=== PATIENT | female | born 1935 | race Caucasian/White ===

== ENCOUNTER → 2017-12-22 | Outpatient (CLI) | payer MEDICARE, BC ==
[2017-12-22 22:04] LABS: COLLECTION METHOD CLEAN CATCH
[2017-12-22 22:33] LABS: MUCOUS Present /lpf; PH 5 (5-8); SQUAMOUS EPITHELIAL 0-2 /hpf; URINE APPEARANCE Hazy; URINE BACTERIA Rare /hpf; URINE BILIRUBIN Negative (NEGATIVE); URINE BLOOD 1+ (NEGATIVE); URINE COLOR Yellow; URINE GLUCOSE Negative (NEGATIVE); URINE KETONE Negative (NEGATIVE); URINE LEUKOCYTE ESTERASE 2+ (NEGATIVE); URINE NITRATE Negative (NEGATIVE); URINE PROTEIN(semi-quant) Negative (NEGATIVE); URINE RBC 0-2 /hpf; URINE UROBILINOGEN Negative (NEGATIVE); URINE WBC 20-50 /hpf
== END ==
LOC: ZCOL.LAB 21:19
PROVIDERS: Internal Medicine
DX: F03.90 Unspecified dementia, unspecified severity, without behavioral disturbance, psychotic disturbance, mood disturbance, and anxiety (principal); N39.0 Urinary tract infection, site not specified

== ENCOUNTER → 2018-01-06 | Outpatient (REF) ==
[2018-01-06 09:41] LABS: BASO % 0.7 % (0.0-2.0); EOS # 0.2 (0.0-0.7); GRAN # 3.1 (1.4-6.5); GRAN % 57.4 % (42.2-75.2); LYMPH # 1.7 (1.2-3.4); MEAN CELL VOLUME 83 fl (80.0-100.0); MEAN CORPUSCULAR HGB CONC 32 g/dl (33.0-37.0); MEAN PLATELET VOLUME 10.4 fl (7.4-10.4); MONO # 0.4 (0.1-0.6); MONO % 6.7 % (1.7-9.3); PLATELET COUNT 262 K/mm3 (130-400); RED BLOOD COUNT 4.17 M/mm3 (4.10-5.30); REDCELL DISTRIBUTION WIDTH-CV 14.3 % (11.5-14.5)
[2018-01-06 09:42] LABS: HEMATOCRIT 34.5 % (37.0-47.0); MEAN CORPUSCULAR HEMOGLOBIN 26 pg (27.0-31.0)
[2018-01-06 10:04] LABS: BILIRUBIN,TOTAL 0.2 mg/dL (0.0-1.0); CALCIUM 9.3 mg/dL (8.4-10.2); CHOLESTEROL RISK RATIO 2.1; CREATININE, serum 0.77 mg/dL (0.52-1.25); POTASSIUM 4.3 mmol/L (3.4-5.0); TOTAL PROTEIN 6.9 gm/dL (6.4-8.2)
[2018-01-06 10:33] LABS: THYROID STIMULATING HORMONE 2.62 uIU/mL (0.465-4.680)
== END ==
LOC: ZCOL.LAB 09:34
PROVIDERS: Internal Medicine
DX: E78.2 Mixed hyperlipidemia (principal); R41.3 Other amnesia; G47.30 Sleep apnea, unspecified; E03.4 Atrophy of thyroid (acquired)

== ENCOUNTER 2020-01-22 10:46 | Inpatient (IN) | payer MEDICARE, BC ==
[~2020-01-22] VITALS: Ht 157.5 cm; Wt 63.6 kg
[2020-01-22 12:31] VITALS: BP 138/70; PULSE 70; TEMP 97.5
--- NOTE | 2020-01-22 12:45 | NUR ---
Lying in bed with eyes open. Patient is alert to self, disoriented to date of , place, and date. Patient denies pain at this time. Does say "ouch" with rolling to the right hip but pain goes away when done moving. Patient incontient of urine, removed brief, pericare provided, new brief applied. Positioned into comfortable position. Patient denies further needs.
[2020-01-22] MEDS ORDERED: ASPIRIN 81M81 MG/TA2 PO (13:11)
[2020-01-22] MEDS ORDERED: VITAMIN D 1001000 IU PO (13:12)
[2020-01-22] MEDS ORDERED: NAMENDA 10MG TA10 MG PO (13:13)
[2020-01-22] MEDS ORDERED: CELEXA40 MG PO (13:13)
[2020-01-22] MEDS ORDERED: TYLENOL 8 HR PO (13:14)
[2020-01-22] MEDS ORDERED: COLACE 100100 MG/CAP PO (13:15)
[2020-01-22] MEDS ORDERED: SYNTHROID 0.0.025 MG PO ×2 (13:17→13:19)
[2020-01-22] MEDS ORDERED: ARICEPT 5MG PO (13:19)
[2020-01-22] MEDS ORDERED: ATIVAN 0.50.5 MG/TAB PO (13:20)
[2020-01-22 14:10] LABS: BASO % 0.4 % (0.0-2.0); EOS # 0.2 (0.0-0.7); EOS % 2.8 % (0-4.0); GRAN # 5.7 (1.4-6.5); GRAN % 76.1 % (42.2-75.2); HEMOGLOBIN 11.2 g/dl (12.5-16.0); LYMPH # 1.1 (1.2-3.4); LYMPH % 14.7 % (20.0-51.0); MEAN CELL VOLUME 81 fl (80.0-100.0); MEAN CORPUSCULAR HEMOGLOBIN 25 pg (27.0-31.0); MEAN CORPUSCULAR HGB CONC 31 g/dl (33.0-37.0); MEAN PLATELET VOLUME 10.3 fl (7.4-10.4); MONO # 0.4 (0.1-0.6); MONO % 5.6 % (1.7-9.3); PLATELET COUNT 227 K/mm3 (130-400); RED BLOOD COUNT 4.47 M/mm3 (4.10-5.30); REDCELL DISTRIBUTION WIDTH-CV 15.1 % (11.5-14.5)
[2020-01-22 14:11] LABS: HEMATOCRIT 36.1 % (37.0-47.0)
[2020-01-22 14:16] LABS: PROTHROMBIN TIME 11.7 SECONDS (9.7-12.8)
[2020-01-22 14:32] LABS: ALBUMIN 4.2 gm/dL (3.5-5.0); BILIRUBIN,TOTAL 0.6 mg/dL (0.0-1.0); CALCIUM 9.4 mg/dL (8.4-10.2); CREATININE, serum 0.84 (0.52-1.25); POTASSIUM 3.9 mmol/L (3.4-5.0); TOTAL PROTEIN 7.1 gm/dL (6.4-8.2)
[2020-01-22 14:39] LABS: PRE ALBUMIN 23.2 mg/dL (17.6-36.0)
--- NOTE | 2020-01-22 14:52 | NUR ---
Patient requests Tylenol for pain in right hip. Administered Tylenol as prescribed. Patient denies further needs.
[2020-01-22 14:58] LABS: MUCOUS Present /lpf; PH 6 (5-8); URINE APPEARANCE Cloudy; URINE BACTERIA Rare /hpf; URINE BILIRUBIN Negative (NEGATIVE); URINE BLOOD 1+ (NEGATIVE); URINE COLOR Yellow; URINE GLUCOSE Negative (NEGATIVE); URINE KETONE Negative (NEGATIVE); URINE LEUKOCYTE ESTERASE 3+ (NEGATIVE); URINE NITRATE Negative (NEGATIVE); URINE PROTEIN(semi-quant) Negative (NEGATIVE); URINE UROBILINOGEN Negative (NEGATIVE)
[2020-01-22 15:25] LABS: COLLECTION METHOD CATHETER
[2020-01-22 15:57] VITALS: BP 161/93; PULSE 76; TEMP 98.6
--- NOTE | 2020-01-22 16:06 | NUR ---
Lying in bed with eyes closed. Respirations even and unlabored. No signs or symptoms of discomfort noted at this time. Bautista to dependent drainage with clear yellow urine noted in container and tubing.
--- NOTE | 2020-01-22 16:47 | NUR ---
Patient complains of pain in right hip. Administer Morphine as prescribed.
--- NOTE | 2020-01-22 17:02 | NUR ---
Spoke with the patient's daughter, Tatiana Mora- ERIK, and reveiwed consent for procedure. Verbal consent given over phone. CHRISTY Ibrahim, second witness and speaks with Tatiana to confirm consent for procedure. Consent placed on chart.
--- NOTE | 2020-01-22 18:03 | NUR ---
Lying in bed with eyes closed. Opens eyes when name called out. Denies any pain in hip. Encouraged patient to eat supper. Denies needs at this time.
--- NOTE | 2020-01-22 19:15 | NUR ---
Received report from CHRISTY Aparicio. Pt was awake lying in bed. Pt has her call light within reach and her bed is in lowest position.
[2020-01-22 19:23] VITALS: BP 132/58; PULSE 75; TEMP 98.7
--- NOTE | 2020-01-22 22:00 | NUR ---
Pt is currently lying in bed at this time. Pt was able to take oral medications one at a time. I also had to que her to swallow a couple of time because she was holding the medication on her tongue. Pt stated that she was not having pain at this time. Pt heart sounds were normal S1 and S2 sounds, Lungs sounds were clear. Pt bowel sounds were hypoactive in all quads. Pt gongora is draining yellow urine at this time it appears clear. Pt has been drinking fluids. Pt did now eat much of her dinner at all. She did take a few bites of her dinner tray. Pt has her call light within reach and her bed is in lowest position. I did speak with Alize Brooks APRN and passed along that pt needed clearance for surgery. She informed me that she spoke with Carline and informed her that the pt was cleared.
--- NOTE | 2020-01-22 23:52 | NUR ---
While going in to check on pt I noticed that she was making faces and she was grunting while tryin to moved in bed. I asked pt if she wanted to try some Tylenol to help with pain she agreed. Pt was able to take 2 Tylenol at this time. I did offer pt some applesauce to help her with getting her pills down. Pt took 2 scoops of applesauce. I did inform her that she was NPO after midnight and she agreed to take a few sips before midnight.
[2020-01-23] VITALS (13 sets, daily range): BP systolic 129–168; BP diastolic 50–89; PULSE 67–82; TEMP 97.4–98.9
--- NOTE | 2020-01-23 02:41 | NUR ---
Pt woke up calling someone name. Went in aske pt was she ok she smile and said yes! Pt has her call light within reach and her bed is in lowest position.
[2020-01-23 06:42] LABS: BASO % 0.3 % (0.0-2.0); EOS # 0.2 (0.0-0.7); EOS % 2.4 % (0-4.0); GRAN # 7.8 (1.4-6.5); GRAN % 84.7 % (42.2-75.2); HEMOGLOBIN 10.5 g/dl (12.5-16.0); LYMPH # 0.8 (1.2-3.4); LYMPH % 8.2 % (20.0-51.0); MEAN CELL VOLUME 82 fl (80.0-100.0); MEAN CORPUSCULAR HEMOGLOBIN 25 pg (27.0-31.0); MEAN CORPUSCULAR HGB CONC 31 g/dl (33.0-37.0); MEAN PLATELET VOLUME 10.5 fl (7.4-10.4); MONO # 0.4 (0.1-0.6); PLATELET COUNT 214 K/mm3 (130-400); RED BLOOD COUNT 4.13 M/mm3 (4.10-5.30); REDCELL DISTRIBUTION WIDTH-CV 15.2 % (11.5-14.5)
[2020-01-23 06:48] LABS: CREATININE, serum 0.68 (0.52-1.25); HEMATOCRIT 33.9 % (37.0-47.0); POTASSIUM 3.6 mmol/L (3.4-5.0)
--- NOTE | 2020-01-23 06:52 | NUR ---
Pt currently headed down to surgery. Pt is currently sleeping in bed. Quick report given to CHRISTY Aparicio.
--- NOTE | 2020-01-23 06:53 | NUR ---
Patient alert to self, disoriented to anything further. Denies pain when asked. Bautista patent to dependent drainage draining clear yellow urine. Patient to surgery at this time via bed.
--- NOTE | 2020-01-23 09:14 | NUR ---
Patient to room from PACU via bed. Patient is sleey, awakens when name said but goes back to sleep. On oxygen at 2L/NC. Respirations even and unlabored. No signs or symptoms of discomfort noted. Dressing to right hip CDI.
--- NOTE | 2020-01-23 11:06 | NUR ---
Patient becoming more alert at this time. Still only alert to name, continues to be confused on other aspects of conversation. Denies pain at this time. Is able to drink water and take medication without difficulty. Goes back to sleep at this time.
--- NOTE | 2020-01-23 12:57 | NUR ---
Patient able to eat some of her clear liquid lunch without difficulty. Requests to take a nap.
--- NOTE | 2020-01-23 13:26 | NUR ---
CORI contacted patient's daughter Tatiana at [phone] to complete discharge assessment, as Patient could ot tolerate a phone interview. patient currently lives at [facility] with her . 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 Patients PCP is Dr. Benson, with no upcoming appointments. Patient gets her medications from [facility] with no concerns. Patient's daughter Tatiana is concerned about rehabilitation services that patient will receive when she is released from the hospital, and if [facility] would be able to offer services. Patient's daughter indicated that the patients ability to function is low, and therefore she feels like inpatient rehab would be too much. She did inquire about PT/OT/ST services as well as home health. CORI spoke with patients nurse who indicated that patient had a procedure completed this morning, and that there are no current recommendation for services. Cori did attempt to contact [facility], however they were closed. CORI will continue to follow, and inform Tatiana of status as it comes available.
--- NOTE | 2020-01-23 15:52 | NUR ---
Lying in bed and opens eyes when name called out. Patient says that has some pain but not able to rate it. Reoriented patient to her surgery. Repositioned patient in the bed. Patient voices no further needs at this time and requests to take a nap.
--- NOTE | 2020-01-23 16:34 | NUR ---
Lying in bed with eyes closed. Respirations even and unlabored. No signs or symptoms of discomfort noted at this time.
--- NOTE | 2020-01-23 18:15 | NUR ---
Attempt to assist patient in eating supper. Offered patient to take multiple bites and patient says "Why do you keep saying that you are making me mad." Patient refuses to eat at this time. Explain that we will try again here in a little bit. Patient closes eyes.
--- NOTE | 2020-01-23 18:39 | NUR ---
Asked patient if she would like to try to eat some and the patient says "I did not come here to be drilled." Will leave food and attempt again.
--- NOTE | 2020-01-23 19:15 | NUR ---
Received report from Alessandra. Patient is alert but not oriented. She has gongora catheter draining clear, yellow urine. With dressing on the right hip. Ice pack was applied. Call light within reach.
--- NOTE | 2020-01-23 20:56 | NUR ---
PT IS UNABLE TO PERFORM THE OPERATION NECESSARY FOR EFFECTIVE USE OF INCENTIVE SPIROMETRY.
--- NOTE | 2020-01-23 21:00 | NUR ---
This nurse tried to feed the patient. She was able to eat two spoons of food. She was able to drink a glass of water. She cannot say if she has pain but based on her FLACC, she is calm and not crying.
[2020-01-24 00:35] VITALS: BP 120/40; PULSE 71; TEMP 97.6
[2020-01-24 04:09] VITALS: BP 125/38; PULSE 73; TEMP 98.3
[2020-01-24 05:27] LABS: BASO % 0.3 % (0.0-2.0); EOS # 0.3 (0.0-0.7); EOS % 3.6 % (0-4.0); GRAN # 5.6 (1.4-6.5); GRAN % 78.2 % (42.2-75.2); LYMPH # 0.8 (1.2-3.4); LYMPH % 11.5 % (20.0-51.0); MEAN CELL VOLUME 81 fl (80.0-100.0); MEAN CORPUSCULAR HGB CONC 31 g/dl (33.0-37.0); MEAN PLATELET VOLUME 10.8 fl (7.4-10.4); MONO # 0.4 (0.1-0.6); MONO % 5.8 % (1.7-9.3); PLATELET COUNT 163 K/mm3 (130-400); RED BLOOD COUNT 3.46 M/mm3 (4.10-5.30)
[2020-01-24 05:29] LABS: HEMATOCRIT 28.1 % (37.0-47.0); HEMOGLOBIN 8.6 g/dl (12.5-16.0); MEAN CORPUSCULAR HEMOGLOBIN 25 pg (27.0-31.0)
[2020-01-24 05:39] LABS: CALCIUM 8.4 mg/dL (8.4-10.2); CREATININE, serum 0.73 (0.52-1.25); POTASSIUM 3.6 mmol/L (3.4-5.0)
--- NOTE | 2020-01-24 07:50 | NUR ---
Patient has been asleep most of the night. Pain is controlled. Dr. Kumar made his rounds this morning and changed her dressing to aquacell. Will endorse patient to day shift nurse.
[2020-01-24 07:57] VITALS: BP 122/49; PULSE 71; TEMP 97.4
--- NOTE | 2020-01-24 08:00 | NUR ---
PATIENT IS PLEASANTLY CONFUSED WITH A HX OF DEMENTIA. PATIENT IS ORIENTED TO PERSON. VSS. DENIES PAIN AT REST BUT DOES C/O PAIN IN RLE WITH ACTIVITY. GAVE PRN NORCO, ONE TABS WITH AM MEDS BEFORE AM THERAPY. PATIENT PULLED OFF RIGHT HIP AQUACEL DRESSING THE SURGEON APPLIED THIS AM. APPLIED A NEW AQUACEL DRESSING TO RLE. TEDS TO BLE. SCD'S CURRENTLY OFF. NURSING AND PT ASSISTED PATIENT TO BEDSIDE CHAIR WITH WALKER. CHAIR ALARM ON. BLE ELEVATED WITH ICE PACK TO RIGHT HIP. CHARLTON TO DD. RIGHT FA IV TO INT. HEAD TO TOE ASSESSMENT WNL. TALKED WITH DAUGHTER FAZAL THIS AM. NO OTHER NEEDS AT THIS TIME. CALL LIGHT IN REACH.
[2020-01-24 12:02] VITALS: BP 105/55; PULSE 79; TEMP 98
--- NOTE | 2020-01-24 13:45 | NUR ---
PATIENT ASSISTED BACK TO BED TO REST AFTER LUNCH AND AFTERNOON THERAPY. PATIENT RESTING COMFORTABLY WITH CALL LIGHT IN REACH.
--- NOTE | 2020-01-24 14:30 | NUR ---
Second Floor Operator contacted patient's daughter Tatiana to discuss discharge planning. FEDE reviewed PT recommendation for post acute rehab as patient was not able to walk with them. Tatiana would like referrals sent to [facility] and to [facility]. FEDE contacted Natalia [facility] Director to give referral then contacted Tess at [facility] and faxed referral. FEDE contacted CHRISTY Simpson at [facility] who reported at this time, a skilled stay somewhere would be most beneficial to patient as they have restrictions on visitors right now including Home Health. Tatiana advised they can have HH, but it's on a limited basis. FEDE updated Tatiana on referrals. sent. SW to continue to follow.
[2020-01-24 16:14] VITALS: BP 95/50; PULSE 85; TEMP 97.3
[2020-01-24 20:00] VITALS: BP 102/65; PULSE 88; TEMP 98
--- NOTE | 2020-01-24 22:50 | NUR ---
Pt was awake in bed. Pt was asked at this time if she wanted to go for a short walk. Pt agreed with taking a walk. With 2 person assisted pt was assisted to the [facility] to see if we could get her to void. Pt had to be qued several times to move her left leg. Pt did make it to the toilet and she sat for a while. Pt did not void at this time but was ready to go back to bed. Pt had a hard time standing and with myself and another nurse we were unable to get her to take a step. A wheelchair was used at this time to get the pt back to bed. Pt is safely in bed at this time, she has her call light within reach and her bed is in lowest positon and her alarm is on at this time.
[2020-01-25] VITALS: BP 110/74; PULSE 77; TEMP 98
--- NOTE | 2020-01-25 04:00 | NUR ---
Called Dr. Webb and explained to him that pt had not voided, and I had been encourging oral fluids but pt hadn't voided. He ordered for pt to have NS @ 75/ml and hour. Fluids are currently running but @ 0450 I went to check pt again and pt was incontinent of urine. Pt had a large amount of urine on her bed pad. Pt did take a few more sips of water at this time. After changing pt went back to sleep. She has her call light within reach and her bed is in lowest position and alarm is on at this time.
[2020-01-25 04:45] VITALS: BP 137/59; PULSE 71; TEMP 97.8
--- NOTE | 2020-01-25 05:00 | NUR ---
Pt is currentlyl resting in bed at this time. Since the pt voided she has been resting in bed. Her call light is within reach and her bed is in lowest position, and alarm is on.
[2020-01-25 06:24] LABS: BASO % 0.3 % (0.0-2.0); EOS # 0.2 (0.0-0.7); GRAN % 81.2 % (42.2-75.2); LYMPH # 0.7 (1.2-3.4); MEAN CELL VOLUME 82 fl (80.0-100.0); MEAN CORPUSCULAR HGB CONC 31 g/dl (33.0-37.0); MEAN PLATELET VOLUME 10.7 fl (7.4-10.4); MONO # 0.5 (0.1-0.6); PLATELET COUNT 179 K/mm3 (130-400); RED BLOOD COUNT 3.45 M/mm3 (4.10-5.30); REDCELL DISTRIBUTION WIDTH-CV 15.1 % (11.5-14.5)
[2020-01-25 06:33] LABS: HEMATOCRIT 28.3 % (37.0-47.0); HEMOGLOBIN 8.7 g/dl (12.5-16.0); MEAN CORPUSCULAR HEMOGLOBIN 25 pg (27.0-31.0)
[2020-01-25 06:34] LABS: CALCIUM 8.6 mg/dL (8.4-10.2); CREATININE, serum 0.8 (0.52-1.25); POTASSIUM 3.5 mmol/L (3.4-5.0)
--- NOTE | 2020-01-25 07:16 | NUR ---
Reported off to CHRISTY Arriaza. Pt has her call light within reach and her bed is in lowest position.
[2020-01-25 07:33] VITALS: BP 151/53; PULSE 68; TEMP 98.1
--- NOTE | 2020-01-25 07:34 | NUR ---
REPORT FROM SAMRA HARRISON.
[2020-01-25] MEDS ORDERED: ASPI325T6 PO (10:39)
--- NOTE | 2020-01-25 10:49 | NUR ---
PT SITTING UP IN BED CONTINUES TO BE CONFUSED WITH BASELINE DEMENTIA. PLAN ON DISCHARGE TO [facility] WITH TRANSPORT BY [facility]. DRESSING TO RIGHT HIP CDI WITH AQUACEL OVER INCISION.
[2020-01-25 11:09] VITALS: BP 120/86; PULSE 73; TEMP 98.6
--- NOTE | 2020-01-25 11:32 | NUR ---
Respiratory Scientist spoke with MARIAMA Fisher Director who advised they would not be able to accept referral. Patient is ready for discharge today. FEDE spoke with MICHELLE Babcock at [facility] who advised they are able to accept. FEDE contacted patient's daughter, Tatiana who is agreeable to [facility] for patient. Tatiana would like SW to look into [facility] for transport. FEDE contacted [facility] and was advised base rate is $464 + $13/mile. Tatiana is agreeable to pay this martinez. FEDE contacted [facility] and scheduled transport for 1300. FEDE provided Tatiana's contact information to [facility] and advised she would pay for transport. FEDE provided transport time to CHRISTY Arriaza, patient's daughter Tatiana, and MICHELLE Babcock. FEDE provided report numbers to Hospitalist and CHRISTY Arriaza. Accepting physician is Nelia Light APRN. FEDE reviewed IM form with patient's daughter Tatiana who verbalized understanding and provided verbal consent as signature. FEDE placed form in patient's chart. FEDE contacted CHRISTY Simpson at [facility] to provide update. FEDE placed EMS transport forms on patient's chart. FEDE faxed discharge orders and COVID 19 assessment to Yoko at [facility]. No additional needs at this time.
--- NOTE | 2020-01-25 11:34 | NUR ---
REPORT TO FERNANDO.
--- NOTE | 2020-01-25 11:36 | NUR ---
REPORT TO FERNANDO HENNESSYCARLTON SWING BED.
--- NOTE | 2020-01-25 11:46 | NUR ---
First visit from the clay mixer. No needs right now.
--- NOTE | 2020-01-25 14:55 | NUR ---
PATIENT DISCHARGED TO [facility] TRANSFERED BY EMS @ 130
== END 2020-01-25 13:00 | disposition swing bed (61) | DRG 470 ==
LOC: JCC 10:46
PROVIDERS: Orthopaedic Surgery; Physician Assistant; ADMIT Family Medicine
PROC: 0SRR0J9 Replacement of Right Hip Joint, Femoral Surface with Synthetic Substitute, Cemented, Open Approach (ICD-10-PCS; principal; 2020-01-23 07:30)
DX: S72.011A Unspecified intracapsular fracture of right femur, initial encounter for closed fracture (principal); N39.0 Urinary tract infection, site not specified; E87.1 Hypo-osmolality and hyponatremia; W19.XXXA Unspecified fall, initial encounter; F03.90 Unspecified dementia, unspecified severity, without behavioral disturbance, psychotic disturbance, mood disturbance, and anxiety; E03.9 Hypothyroidism, unspecified; D64.9 Anemia, unspecified; F32.9 Major depressive disorder, single episode, unspecified; Z79.82 Long term (current) use of aspirin; Y92.129 Unspecified place in nursing home as the place of occurrence of the external cause
CPT/HCPCS: 99231-AI; 99232-AI; 99239; C1776; J0690; J0696; J1885; J2250; J2270; J2370; J2405; J2704; J3010; J7030

== ENCOUNTER 2022-04-07 20:07 | Inpatient (IN) | payer MEDICARE, BC ==
[~2022-04-07] VITALS: Ht 157.5 cm; Wt 65.8 kg
[~2022-04-07 20:07] MED LIST: ARICEPT 5MG PO; ASPI325T6 PO; ASPIRIN 81M81 MG/TA2 PO; ATIVAN 0.50.5 MG/TAB PO; CELEXA40 MG PO; COLACE 100100 MG/CAP PO; NAMENDA 10MG TA10 MG PO; SYNTHROID 0.0.025 MG PO; TYLENOL 8 HR PO; VITAMIN D 1001000 IU PO
[2022-04-07 20:28] LABS: BASO % 0.3 % (0.0-2.0); GRAN # 10.1 K/mm3 (1.4-6.5); HEMATOCRIT 38.5 % (37.0-47.0); HEMOGLOBIN 11.8 g/dl (12.5-16.0); LYMPH # 0.7 K/mm3 (1.2-3.4); LYMPH % 5.9 % (20.0-51.0); MEAN CELL VOLUME 85 fl (80.0-100.0); MEAN CORPUSCULAR HEMOGLOBIN 26 pg (27-31); MEAN CORPUSCULAR HGB CONC 31 g/dl (33.0-37.0); MEAN PLATELET VOLUME 10.8 fl (7.4-10.4); MONO # 0.4 K/mm3 (0.1-0.6); MONO % 3.4 % (1.7-9.3); PLATELET COUNT 224 K/mm3 (130-400); RED BLOOD COUNT 4.55 M/mm3 (4.10-5.30); REDCELL DISTRIBUTION WIDTH-CV 16.6 % (11.5-14.5)
[2022-04-07 20:49] LABS: ALBUMIN 3.6 gm/dL (3.4-4.8); BILIRUBIN,TOTAL 0.3 mg/dL (0.2-1.2); C-REACTIVE PROTEIN 5.23 mg/dL (0.00-0.50); CALCIUM 9.2 mg/dL (8.4-10.2); CREATININE, serum 1.45 mg/dL (0.57-1.11); POTASSIUM 4.7 mmol/L (3.5-4.5); TOTAL PROTEIN 6.6 gm/dL (6.2-8.1)
[2022-04-07 21:09] LABS: TSH w REFLEX 2.73 uIU/mL (0.350-4.940)
[2022-04-07 21:21] LABS: TROPONIN-I 7.205 ng/mL (0.00-0.033)
[2022-04-07 22:10] LABS: COLLECTION METHOD CLEAN CATCH
[2022-04-07 22:19] LABS: MUCOUS Present (NOT PRESENT); PH 5 (5-8); URINE APPEARANCE Cloudy (CLEAR/HAZY); URINE BACTERIA Rare /hpf (NONE SEEN); URINE BLOOD Negative (NEGATIVE); URINE COLOR Amber (YELLOW); URINE GLUCOSE Negative (NEGATIVE); URINE KETONE Trace (NEGATIVE); URINE NITRATE Negative (NEGATIVE); URINE PROTEIN(semi-quant) 1+ (NEGATIVE)
[2022-04-07 22:30] LABS: INR 1.1 (0.8-3.0); PROTHROMBIN TIME 12.2 SECONDS (9.7-12.8)
[2022-04-07] MEDS ORDERED: CALMOSEPTINE OI71 GM TP (22:56)
[2022-04-07] MEDS ORDERED: ATIVAN 0.50.5 MG/TAB PO ×2 (22:56→22:59)
[2022-04-07] MEDS ORDERED: ANTI-DIARRHEAL2 MG PO (22:56)
[2022-04-07] MEDS ORDERED: SYNTHROID 0.0.025 MG PO (22:57)
[2022-04-07] MEDS ORDERED: TYLENOL 325MG325 MG PO (22:57)
[2022-04-07] MEDS ORDERED: TYLENOL 8 HR PO (22:57)
[2022-04-07] MEDS ORDERED: ARICEPT 5MG PO (22:58)
[2022-04-07] MEDS ORDERED: ASPIRIN 81M81 MG/TA2 PO (22:58)
[2022-04-07] MEDS ORDERED: VITAMIN D31000 I1 PO (22:58)
[2022-04-07] MEDS ORDERED: PEPCID 20MG TAB20 MG PO (22:59)
[2022-04-07] MEDS ORDERED: NAMENDA 10MG TA10 MG PO (22:59)
[2022-04-07] MEDS ORDERED: CELEXA 20MG20 MG/TAB PO (22:59)
--- NOTE | 2022-04-08 05:33 | NUR ---
87 yo female admitted for further care and management of severe sepsis and CAVP secondary to Covid19 with likely superimposed bacterial pneumonia. ht 157.5 cm wt 54.5 kg SCr 1.45 with estimated CrCl ~20 ml/min half life 28.3 hours Plan: Patient may not follow population based kinetics secondary to renal dysfunction. Will give an initial loading dose of vancomycin 1000 mg x1 (18.3 mg/kg); followed by a maintenance regimen of vancomycin 750 mg q24h to target a goal trough of 15-20 mcg/ml. Will follow patient's renal function, micro data, and vancomycin levels as indicated to assess for any necessary changes to regimen. Thank you for this dosing consult.
[2022-04-08 06:27] LABS: HEMATOCRIT 40.1 % (37.0-47.0); HEMOGLOBIN 12.3 g/dl (12.5-16.0); MEAN CELL VOLUME 86 fl (80.0-100.0); MEAN CORPUSCULAR HEMOGLOBIN 26 pg (27-31); MEAN CORPUSCULAR HGB CONC 31 g/dl (33.0-37.0); MEAN PLATELET VOLUME 10.9 fl (7.4-10.4); PLATELET COUNT 233 K/mm3 (130-400); RED BLOOD COUNT 4.68 M/mm3 (4.10-5.30); REDCELL DISTRIBUTION WIDTH-CV 17.1 % (11.5-14.5)
[2022-04-08 06:46] LABS: ALBUMIN 3.1 gm/dL (3.4-4.8); BILIRUBIN,TOTAL 0.4 mg/dL (0.2-1.2); CALCIUM 8.7 mg/dL (8.4-10.2); CREATININE, serum 1.4 mg/dL (0.57-1.11); POTASSIUM 4.8 mmol/L (3.5-4.5); TOTAL PROTEIN 6.3 gm/dL (6.2-8.1)
[2022-04-08 07:45] LABS: BAND 2 % (0-10); LYMPHOCYTE 4 % (20.0-51.0); NEUTROPHILS 92 % (42.0-75.2); PLATELET ESTIMATE NORMAL (NORMAL)
[2022-04-08 07:46] LABS: ANISOCYTOSIS 1+; HYPOCHROMIA 2+
[2022-04-08] MEDS ORDERED: ATIVAN 0.50.5 MG/TAB PO (14:36)
[2022-04-08 16:07] VITALS: BP 98/65; PULSE 99; TEMP 98.3
--- NOTE | 2022-04-08 16:15 | NUR ---
Assessment completed to best of ability, patient is alert/ but unable to answer questions or follow ocmmands, has dementia and lives at [facility], soft B/P but stable as well as other VS stable, afebriel at this time, lungs are coarse and patient is requiring 3L.o2 via oxymask at this time, does not appear to be in any acute pain or discomfort but is unable to answer when asked bout pain, heart RRR/distal pulses are palpable, no observable skin issues/ but did not perform an extensive skin assessment at this time as arrived to eval the patient at this time as well, bed alarm is on, Debbie Rodriguez, RN is primary care nurse and I have discussed my assessment with her
[2022-04-08 20:18] VITALS: BP 100/70; PULSE 88; TEMP 98.5
[2022-04-09 00:43] VITALS: BP 125/71; PULSE 95; TEMP 98.4
--- NOTE | 2022-04-09 02:33 | NUR ---
Pt alert but unable to assess orientation because pt's speech is jumbled. Pt is unable to tell me what she needs/wants. Pt follows some commands and does not follow others. Pt was able to squeeze my hands and lift her arms slightly when asked, but was unable to point to where she was in pain. Pt is unable to answer orientation questions. Pt does not show visual signs of pain, is resting at this time. Shift assessment performed. Medications administered per orders and education proivded. Pt NPO, unable to take PO medications. IV antibx and IV fluids continuing per orders. VS stable. BP stable. Afebrile. HR in the 90's, NSR. Pt has a gongora catheter in place with not much output. I did note that the pt was wet, despite having a gongora in place. Pt was cleaned up and I will reassess the gongora to see if it is leaking. Fall precautions in place. Turning pt q2hr. No significant skin issues noted. Pt resting, will continue to monitor.
[2022-04-09 03:33] VITALS: BP 133/60; PULSE 96; TEMP 98.4
--- NOTE | 2022-04-09 05:07 | NUR ---
No adverse events overnight. Pt continues to be disoriented. Unable to answer orientation questions. Pt is alert to speech, but is having more difficulty following commands this morning. Did not notice any new leakage around the gongora site this morning, but will continue to monitor. Enforcing NPO. Pt unable to follow commands and take PO pills. IV fluids and IV antibx continue per orders. VS stable. Afebrile. Currently on 5L oxymask. Pt resting at this time, will continue to monitor.
[2022-04-09 07:00] LABS: HEMATOCRIT 37.1 % (37.0-47.0); HEMOGLOBIN 11.2 g/dl (12.5-16.0); MEAN CELL VOLUME 86 fl (80.0-100.0); MEAN CORPUSCULAR HEMOGLOBIN 26 pg (27-31); MEAN CORPUSCULAR HGB CONC 30 g/dl (33.0-37.0); MEAN PLATELET VOLUME 10.9 fl (7.4-10.4); PLATELET COUNT 213 K/mm3 (130-400); REDCELL DISTRIBUTION WIDTH-CV 17.8 % (11.5-14.5)
[2022-04-09 07:17] LABS: ALBUMIN 2.9 gm/dL (3.4-4.8); BILIRUBIN,TOTAL 0.3 mg/dL (0.2-1.2); CALCIUM 9.1 mg/dL (8.4-10.2); CREATININE, serum 1.16 mg/dL (0.57-1.11); POTASSIUM 4.8 mmol/L (3.5-4.5); TOTAL PROTEIN 6.2 gm/dL (6.2-8.1)
[2022-04-09 08:15] LABS: ANISOCYTOSIS 1+; BAND 6 % (0-10); LYMPHOCYTE 5 % (20.0-51.0); METAMYELOCYTE 1 % (0-0); NEUTROPHILS 87 % (42.0-75.2); PLATELET ESTIMATE NORMAL (NORMAL)
[2022-04-09 08:18] VITALS: BP 146/72; PULSE 95; TEMP 99.2
--- NOTE | 2022-04-09 09:30 | NUR ---
Gold RN confirmed an order for PICC placement. Unable to maintain vascular access via the peripheral route. Her IV site is leaking. She is on numerous IV medications for treatment of COVID 19+. Attempted to contact Tatiana Mora and phone not functioning. Contacted Raymond and explained PICC placement and a need for reliable vascular access for IV medication administration. He will contact his sister and discuss PICC placement. Explained risks and benefits of PICC placement. Obtained a phone consent from patient's son Raymond. Confirm with Gold an order for PICC placement at 1300. She reported, "I will put hte order in." At 1300, V nurse is at patient's bedside. She in non-verbal. Her eyes are open. Gold not reports, " PICC is canceled. Procedure stoped. AIV nurse was in the process of setting up for the procedure. No skin punctured.
[2022-04-09 11:48] VITALS: BP 124/70; PULSE 90; TEMP 97.6
--- NOTE | 2022-04-09 11:56 | NUR ---
PATIENT LAYING IN BED NON RESPONSIVE TO INTERACTION WITH NURSING CARE. ALERT ONLY TO STIMULI, DOES NOT FOLLOW COMMANDS, DOES OR ALERT TO VOICE, FOLLOW VISUAL CUES. CHARLTON REMOVED, AND PUREWICK PLACED. NO SIGNS OF PAIN. DISCUSSED WTIH DAUGHTER, CASEY, REGUARDING COMFORT/HOSPICE CARE. DR. SANTOS TO F/U. PATIENT ON 6L O2 VIA OXYMASK. THICK WET COUGH INTERMITTENTLY. PICC LINE PLACEMENT ORDERED. IV SITE BLEEDING AND LEAKING, WILL REMOVE.
--- NOTE | 2022-04-09 15:38 | NUR ---
Chemical Compounder Helper was notified by Hospitalist that patient is being put on comfort care and family's desire is to return to [facility]. SW contacted patient's daughter, Rosemarie (ph#[phone]) to discuss discharge planning. Rosemarie wants patient to return to [facility] with [facility]. Rosemarie inquired about visitation. FEDE spoke with Cristina, Magazine Designer who approved two visitors to come for an hour. FEDE notified Rosemarie and RN. FEDE contacted Lashell at [facility] and faxed updates. FEDE advised we are looking at discharge tomorrow. FEDE contacted Pepe at [facility] and faxed referral. Pepe advised they can accept patient tomorrow. Discharge Plan: Return to [facility] ([facility])
--- NOTE | 2022-04-09 20:00 | NUR ---
PATIENT MOVED TO COMFORT CARE, WILL DISCHARGE TO BACK TO [facility] TOMORROW FOR HOSPICE. PATIENT ALLOWED PER CHRISTY ROONEY TO HAVE 2 VISITORS AT A TIME. IN ROOM FOR 1 HOUR INTERVALS. IN PPE. PATIENT RESTING COMFORTABLY.
--- NOTE | 2022-04-09 23:24 | NUR ---
Went into pt's room to reposition pt and assess. Pt was pale and not breathing. I assessed for a pulse and there was no pulse found at the carotid or radial sites bilaterally. I brought a second RN to bedside and the second RN verfified that the pt had no pulse. The time of was called at 2324. I notified the pt's daughter Rosemarie. harvest supervisor and the provider have also been notified.
--- NOTE | 2022-04-10 00:30 | NUR ---
Contacted [facility] and spoke with Ani. Patient not a candidate for donation. Referral #[id number] [facility] home notified at this time.
--- NOTE | 2022-04-10 01:12 | NUR ---
home here to order picker pt. home employee signed the record of sheet and a copy of the sheet and a copy of the pt's face sheet were given to the home. home was escorted out by security. Will notify warehouse processor, no new changes at this time.
== END 2022-04-10 01:14 | disposition expired | DRG 871 ==
LOC: COL.ER 20:07 → MEDICAL 22:27
PROVIDERS: Emergency Medicine; Nurse Practitioner Family; ADMIT Family Medicine
DX: A41.9 Sepsis, unspecified organism (principal); U07.1 COVID-19; J96.01 Acute respiratory failure with hypoxia; J12.82 Pneumonia due to coronavirus disease 2019; I21.3 ST elevation (STEMI) myocardial infarction of unspecified site; R65.21 Severe sepsis with septic shock; N17.9 Acute kidney failure, unspecified; E87.2 Acidosis; Z66 Do not resuscitate; I48.91 Unspecified atrial fibrillation; F03.90 Unspecified dementia, unspecified severity, without behavioral disturbance, psychotic disturbance, mood disturbance, and anxiety; E03.9 Hypothyroidism, unspecified; F32.A Depression, unspecified; M19.90 Unspecified osteoarthritis, unspecified site; I95.9 Hypotension, unspecified; I25.5 Ischemic cardiomyopathy; I08.3 Combined rheumatic disorders of mitral, aortic and tricuspid valves; D64.9 Anemia, unspecified; E87.5 Hyperkalemia; R73.9 Hyperglycemia, unspecified; Z79.82 Long term (current) use of aspirin; Z79.01 Long term (current) use of anticoagulants; Z79.890 Hormone replacement therapy; Z87.440 Personal history of urinary (tract) infections; Z51.5 Encounter for palliative care
CPT/HCPCS: 99223-AI; 99233-AI; 99239; C9113; J1100; J1650; J2060; J2270; J2405; J2543; J3370; J7030; J7050; J7120